=== PATIENT | female | born 1945 | race Caucasian/White ===

== ENCOUNTER 2019-12-15 09:28 | Day surgery (SDC) | payer MEDICARE ==
[~2019-12-15] VITALS: Ht 168.9 cm; Wt 73.0 kg
[~2019-12-15 09:28] MED LIST: ATOR20TA37 PO; B-12 SL; BUPIVACAINE/PF-EPI 0.5% 1:200K ONE; CHOL10003 PO; OMEP-110 PO
[2019-12-15] MEDS ORDERED: FENTANYL PF 250 MCG/5ML ONE (10:01)
[2019-12-15] MEDS ORDERED: ONDANSETRON 2MG/ML, 2ML ONE (10:01)
[2019-12-15] MEDS ORDERED: DEXAMETHASONE 4 MG/ML, 1ML ONE (10:01)
[2019-12-15] MEDS ORDERED: CEFAZOLIN 1,000 MG ONE (10:01)
[2019-12-15] MEDS ORDERED: NEOSTIGMINE 1 MG/ML, 10ML ONE (10:01)
[2019-12-15] MEDS ORDERED: ROCURONIUM 10MG/ML,5ML ONE (10:01)
[2019-12-15] MEDS ORDERED: GLYCOPYRROLATE 0.2MG/1ML, 5ML ONE (10:01)
[2019-12-15] MEDS ORDERED: PROPOFOL 10 MG/ML, 20ML ONE (10:01)
[2019-12-15 10:29] VITALS: BP 154/85
[2019-12-15] MEDS ORDERED: LACTATED RINGERS 1,000 ML IV SCH ×2 (10:33→12:54)
[2019-12-15] MEDS ORDERED: CHLORHEXIDINE 15 ML UDC ONE (10:35)
[2019-12-15] MEDS ORDERED: CHLORHEXIDINE 15 ML UDC MM ONE (11:00)
[2019-12-15] MEDS ORDERED: BUPIVACAINE/PF-EPI 0.5% 1:200K INFIL ONE (11:58)
[2019-12-15] MEDS ORDERED: PROMETHAZINE 25 MG/ML, 1ML IVPush PRN (12:00)
[2019-12-15] MEDS ORDERED: HALOPERIDOL 5 MG/ML IV PRN (12:00)
[2019-12-15] MEDS ORDERED: ACETAMINOPHEN 325 MG TABLET PO PRN (12:00)
[2019-12-15] MEDS ORDERED: OXYcodone 5 MG/5 ML ORAL.SOL UDC PO PRN (12:00)
[2019-12-15] MEDS ORDERED: LABETALOL 5MG/ML, 20ML IV PRN (12:00)
[2019-12-15] MEDS ORDERED: MEPERIDINE/PF 25MG/0.5ML IVPush PRN (12:00)
[2019-12-15] MEDS ORDERED: HYDROmorphone 1 MG/ML, 1ML INJ IVPush PRN (12:00)
[2019-12-15] MEDS ORDERED: FENTANYL PF 100 MCG/2ML IV PRN (12:00)
[2019-12-15] MEDS ORDERED: hydrALAzine 20 MG/ML, 1ML IV PRN (12:00)
[2019-12-15] MEDS ORDERED: HYDROmorphone 1 MG/ML, 1ML INJ IV PRN (13:00)
[2019-12-15] MEDS ORDERED: ONDANSETRON 2MG/ML, 2ML IVPush PRN (13:00)
[2019-12-15] MEDS ORDERED: HYDROcodone/APAP 5/325 TABLET PO PRN (13:00)
[2019-12-15] MEDS ORDERED: OXYcodone 5 MG/5 ML ORAL.SOL UDC ONE (13:14)
[2019-12-15] MEDS ORDERED: FENTANYL PF 100 MCG/2ML ONE (13:14)
== END 2019-12-15 16:50 | disposition home or self-care (01) ==
LOC: OUT 09:28
PROVIDERS: ATTEND Thoracic Surgery (Cardiothoracic Vascular Surgery)
DX: K95.09 Other complications of gastric band procedure (principal); Z11.59 Encounter for screening for other viral diseases; R13.10 Dysphagia, unspecified; R11.10 Vomiting, unspecified; K66.0 Peritoneal adhesions (postprocedural) (postinfection); K21.9 Gastro-esophageal reflux disease without esophagitis; J69.0 Pneumonitis due to inhalation of food and vomit; F32.9 Major depressive disorder, single episode, unspecified; E78.5 Hyperlipidemia, unspecified; E66.01 Morbid (severe) obesity due to excess calories; Z68.26 Body mass index [BMI] 26.0-26.9, adult; Z79.899 Other long term (current) drug therapy; Z88.2 Allergy status to sulfonamides; Z88.5 Allergy status to narcotic agent; Z96.643 Presence of artificial hip joint, bilateral; Z90.49 Acquired absence of other specified parts of digestive tract; Z98.890 Other specified postprocedural states
CPT/HCPCS: 43774; 87635; 93005; J0690; J1100; J2405; J2704; J2710; J3010; J7120